=== PATIENT | female | born 2000 | race Caucasian/White ===

== ENCOUNTER 2021-09-20 00:59 | Emergency (ER) | payer SELFPAY ==
[2021-09-20] MEDS ORDERED: Ondansetron PF 4 MG/2 ML Vial ONE ×2 (01:20→05:11)
[2021-09-20 02:06] LABS: #Eosinphils 0.1 10x3/uL (0.0-0.5); #Monocytes 0.4 10x3/uL (0.0-1.1); %Basophils 0.2 % (0.0-2.0); %Eosinophils 0.5 % (0.0-6.0); %Lymphocytes 25.1 % (18.0-47.0); %Monocytes 4.4 % (0.0-10.0); %Neutrophils 69.4 % (40.0-75.0); Hemoglobin 12.9 g/dL (12.0-15.5); Mean Corpuscular Hemoglobin 29.8 pg (27.0-33.0); Mean Corpuscular Volume 85.2 fl (81.6-98.3); Mean Platelet Volume 9.4 fl (7.4-10.4); Platelet Count 253 10x3/uL (150-450); Red Blood Cell (RBC) Count 4.33 10x6/uL (3.90-5.03)
[2021-09-20 02:32] LABS: ALT (SGPT) 13 U/L (8-55); AST (SGOT) 20 U/L (5-34); Albumin 4.1 g/dL (3.5-5.0); Alcohol 151 mg/dL (Less than 10); Alkaline Phosphatase 62 U/L (40-110); Anion Gap 17 mmol/L (10-20); BUN (Urea Nitrogen) 16 mg/dL (7.0-18.7); Bilirubin, Total 0.5 mg/dL (0.2-1.2); Calc. Creatinine Clearance 0 mL/min (70-130); Calcium 8.3 mg/dL (7.8-10.44); Carbon Dioxide 20 mmol/L (22-29); Chloride 113 mmol/L (98-107); Globulin 2.3 g/dL (2.4-3.5); Glucose 100 mg/dL (70-105); Protein, Total 6.4 g/dL (6.0-8.3); Sodium 147 mmol/L (136-145)
== END 2021-09-20 05:10 | disposition home or self-care (01) ==
LOC: CSHERS 00:59
DX: F10.129 Alcohol abuse with intoxication, unspecified (principal); E87.6 Hypokalemia
CPT/HCPCS: 36415; 80053; 80307; 85025; 96374; J2405